=== PATIENT | female | born 1955 | race Caucasian/White ===

== ENCOUNTER 2016-10-14 22:35 | Emergency (ER) | payer MEDICARE, OTHER ==
[~2016-10-14 22:35] MED LIST: ACETAMINOPHEN325 MG PO; AZITHROMYCIN250 MG PO; BENTYL10 MG PO; CEFDINIR300 MG PO; CELEXA20 MG PO; DULERA 200 MCG8.8 GM INH; DUONEB 2.5-0.5M1 AMP NEB; FLEXERIL10 MG PO; LACTINEX1 EACH PO; LASIX20 MG PO; LEVAQUIN750 M1 PO; MICRO-K10 MEQ PO; MUCINEX 600MG600 MG PO; OXYGEN; PREDNISONE 10MG10 MG PO; PROTONIX 40MG T40 MG PO; RISPERDAL 1MG TA1 MG PO; SINGULAIR10 MG PO; SYMBICORT 80-10.2 GM INH
[2016-10-14 23:24] LABS: BASOPHIL 0.1 % (0-2); EOSINOPHIL 0.7 % (0-5); HCT 45.2 % (37.0-47.0); HGB 14.5 g/dl (12.5-16.0); LYMPHOCYTE 18.2 % (15-48); MCH 31.2 pg (25.0-31.0); MCHC 32.1 g/dL (32.0-36.0); MCV 97.2 fL (78.0-100.0); MONOCYTE 8.7 % (0-12); MPV 9.5 fL (6.0-9.5); NEUTROPHIL 72.3 % (41-80); PLT 289 K/uL (150-400); RBC 4.65 M/uL (4.20-5.40); RDW 14.1 % (11.5-14.0); WBC 11.5 K/uL (4.0-10.5)
[2016-10-14 23:37] LABS: ALBUMIN 4.4 g/dL (3.5-5.0); BILIRUBIN - TOTAL 0.2 mg/dL (0.1-1.0); CREATININE 0.7 mg/dL (0.5-1.0); POTASSIUM 3.7 mmol/L (3.5-5.1); TOTAL PROTEIN 6.4 g/dL (6.4-8.3)
== END 2016-10-15 00:55 | disposition home or self-care (01) ==
LOC: FER 22:35
PROVIDERS: Emergency Medicine
DX: R06.02 Shortness of breath (principal); R07.9 Chest pain, unspecified; R05 Cough; J44.9 Chronic obstructive pulmonary disease, unspecified; F17.200 Nicotine dependence, unspecified, uncomplicated; Z82.49 Family history of ischemic heart disease and other diseases of the circulatory system; Z87.01 Personal history of pneumonia (recurrent); Z79.51 Long term (current) use of inhaled steroids; Z99.81 Dependence on supplemental oxygen
CPT/HCPCS: 36415; 36600; 71010; 80053; 82803; 84484; 85025; 93005